=== PATIENT | male | born 1960 | race Caucasian/White ===

== ENCOUNTER 2024-02-04 22:39 | Emergency (ER) | payer MEDICAID, SELFPAY ==
[2024-02-04 22:43] VITALS: BP 128/56; PULSE 97; RESP 20; TEMP 36.8; O2SAT 99
[2024-02-04 22:49] VITALS: BP 128/56; PULSE 97; RESP 20; TEMP 36.8; O2SAT 99
--- NOTE | 2024-02-04 22:51 | W.ED.GENAD ---
Discharge Plan Disposition Patient Disposition: Home Condition: Good Discharge Details Clinical Impression: Dental infection Primary Care Provider: Lucas Fuentes ED Provider: Greg Calvo Home Meds and New Rx's Prescriptions: New amoxicillin-pot clavulanate 875-125 mg tablet 1 tab PO BID 10 Days Qty: 20 0RF No Action chlorhexidine gluconate 0.12 % mouthwash 15 ml mucous membrane BID Qty: 473 1RF Rx Instructions: Swish for 30 seconds after toothbrushing, then spit out; repeat twice daily (morning and evening) until symptoms resolve Discharge Instructions Instructions: Dental Abscess (ED) Additional Instructions: At this time you have a mild dental infection. It has not created a large abscess. Please take the antibiotic as directed. Please take Tylenol 1000 mg every 6-8 hours as needed for pain. Avoid Motrin at this time secondary to your renal function. Please follow-up closely with your primary care provider to have your kidney function rechecked in the next week. It is likely slightly elevated from your previous Motrin/ibuprofen use. Please follow-up closely with your oral surgeon. If you notice any worsening of your symptoms, or any new symptoms such as vomiting, diarrhea, fever, chills, shortness of breath, chest pain, numbness, weakness, or fainting , please return immediately to the emergency department for reevaluation. Please follow up with your primary care provider as soon as possible for reassessment and reevaluation. As always, it was a pleasure participating in your medical care today. Referrals: Reina Box NP [NURSE PRACTITIONER] - Lucas Fuentes MD [Primary Care Provider] - [facility] General Date/Time Provider Initiated Documentation: 02/04/24 22:41. [facility] Narrative: 63-year-old male with no significant past medical history presents today for evaluation of chills and shaking. Patient states that for the last month he has had left upper dental pain. He initially saw a dentist outpatient but they do not extract teeth in the upper mandible/molar area. He has been waiting for referral for an oral surgeon. He states that during that time he has continued to have mild and worsening left upper tooth pain. He states that tonight he developed sudden chills and shaking that has been causing worsening of his symptoms. He did take ibuprofen but last time was 2 days ago. He denies any vomiting or diarrhea. No difficulty swallowing or drinking. He is using a Chlorhexidine wash, but has not been on any oral antibiotics. He has no other complaints at this time. No other modifying factors. Related Data Home Medications Medication Instructions Recorded Confirmed chlorhexidine gluconate 0.12 % 15 ml mucous membrane BID #473 mL 12/31/23 02/04/24 mouthwash amoxicillin 875 mg-potassium 1 tab PO BID 10 days #20 tabs 02/05/24 clavulanate 125 mg tablet Previous Rx's Medication Instructions Recorded chlorhexidine gluconate 0.12 % 15 ml mucous membrane BID #473 mL 12/31/23 mouthwash amoxicillin 875 mg-potassium 1 tab PO BID 10 days #20 tabs 02/05/24 clavulanate 125 mg tablet Allergies Allergy/AdvReac Type Severity Reaction Status Date / Time No Known Allergies Allergy Verified 02/04/24 22:48 General Stated Complaint: DentalOral ARLENE: 3 Review of Systems All systems reviewed & are unremarkable except as noted in HPI and below Exam Narrative Exam Narrative: 1.Const: Well-nourished, Well-developed, appearing stated age 2.Eyes: PERRL, no conjunctival injection, and symmetrical lids. 3.ENT: Atraumatic external nose and ears. Moist MM. Neck: Symmetric, trachea midline, No thyromegaly. No evidence of significant swelling or Ludewig's angina. Minimal swelling over the periapical space in the left upper posterior molar. Filling is noted, no severe tooth decay noted otherwise. Ears demonstrate cerumen bilaterally. No mastoid tenderness. No signs of airway compromise. 4.CVS: +S1/S2, No murmurs or gallops. Peripheral pulses 2+ and equal in all extremities. Brisk capillary refill in all extremities. 5.RESP: Unlabored respiratory effort. Clear to auscultation bilaterally. No wheezes rales or rhonchi 6.GI: Soft, Nontender/Nondistended, No hepatosplenomegaly. No guarding or rebound. 7.MSK: Normocephalic/Atraumatic, Extremities w/o deformity or ttp No cyanosis or clubbing, Normal movement of all extremities 8.Skin: Warm, Dry. No rashes or lesions. 9.Neuro: gore stitcher II-XII grossly intact. Sensation grossly intact, no focal neurologic deficits. 10.Psych: (AAO) x3. Appropriate mood and affect Course Vital Signs Vital signs: Vital Signs Temperature 36.8 C 02/04/24 22:43 Pulse 97 H 02/04/24 22:43 Respiratory Rate 20 02/04/24 22:43 Blood Pressure 128/56 L 02/04/24 22:43 Pulse Oximetry 99 02/04/24 22:43 Temperature 36.8 C 02/04/24 22:43 Pulse 97 H 02/04/24 22:43 Respiratory Rate 20 02/04/24 22:43 Blood Pressure 128/56 L 02/04/24 22:43 Blood Pressure Position Supine 02/04/24 22:43 Pulse Oximetry 99 02/04/24 22:43 Oxygen Delivery Method Room Air 02/04/24 22:43 Oxygen Flow Rate 0 02/04/24 22:43 Pain Level 3 02/04/24 22:43 Medical Decision Making 63-year-old male with no significant past medical history presents today for evaluation of chills and shaking. Patient states that for the last month he has had left upper dental pain. He initially saw a dentist outpatient but they do not extract teeth in the upper mandible/molar area. He has been waiting for referral for an oral surgeon. He states that during that time he has continued to have mild and worsening left upper tooth pain. He states that tonight he developed sudden chills and shaking that has been causing worsening of his symptoms. He did take ibuprofen but last time was 2 days ago. He denies any vomiting or diarrhea. No difficulty swallowing or drinking. He is using a Chlorhexidine wash, but has not been on any oral antibiotics. He has no other complaints at this time. No other modifying factors. Exam demonstrates well-appearing male, skin feels slightly warm to the touch, however oral and temporal temperatures are normal. Small area of swelling in the posterior left upper molar over the feeling. No large abscess. No signs of airway compromise. Due to the patient's age, risk factors and systemic symptoms of chills and subjective fever at home, we will evaluate for systemic infection. We will give systemic antibiotics through the IV to start with Ancef, will gently rehydrate, give Toradol, treat with dental block, monitor closely and reassess. 1:11 AM After dental block patient's pain notably improved. Return to see if there was any pus for extraction at the periapical space, but I&D with 18-gauge needle revealed no purulent discharge. Laboratory workup shows no white count or bandemia. Minimal left shift. Lactate initially was elevated at 2.2, repeat after fluids and antibiotics is down to 0.8. Electrolytes normal. Creatinine is elevated at 1.7, no priors for comparison. I did discuss this with the patient, and he states that he had been taking quite a bit of Motrin over the last few days so I suspect this might be a component for the bump in his creatinine. Transaminases are otherwise normal. ESR and CRP are both normal. No active evidence of systemic infection otherwise. Blood cultures have already been drawn and sent. With the notable improvement of his symptoms I do feel that the patient is appropriate for discharge. Recommend close follow-up with PCP for reassessment in the next week of his renal function. We did give the patient a dental sheet for oral surgeon contacts. He will continue to search for one that will take his insurance. We will start the patient on Augmentin twice daily for treatment of the infection. Discussed red flags for which to return. I have extensively reviewed the treatment plan and discharge instructions with the patient and their family. I have addressed all patient concerns at this time. The patient and family was made aware of what symptoms to monitor for that would warrant a return to the emergency department. Discussed the plan with the patient and family, they demonstrate verbal understanding and agreement with our assessment and plan at this time. The documentation in this chart was dictated using [employer] dictation software. Please excuse any dictation errors. Quality:SDOH Health Related Social Needs: No Data to Display PFSH All Active Problems (Updated 02/05/24 @ 00:42 by Greg Calvo DO) Dental infection (Acute) Poison glenys (Acute) Preventative health care (Acute) Pain, dental (Acute) Anterior neck pain (Acute) Neck pain (Acute) Foot lesion (Acute) Family History Mother Depression Father Cancer Sister No problems noted. Brother No problems noted. Grandmother No problems noted. Social History Smoking/Tobacco Use Status: Never Second Hand Exposure: No Smoking risk assessment performed?: Yes Alcohol Intake: never Drug use: Never Substance use type: does not use Counseling given: No Counseling provided: none Caregiver/Support person: No Household members: spouse Housing: house Communication Needs: None Do you need help understanding health information?: Never Pets and animals: No Sexually active: Yes Do you think of yourself as: straight/heterosexual Current gender identity: male What is your relationship status?: How often do you talk on the phone with friends or family?: once per week How often do you get together with friends or relatives?: once per week How often do you attend congregation or yazidi services?: decline to answer Do you belong to any clubs or organized social groups?: no Panel score (0-1 are the most socially isolated patients): 1 What type of physical activity do you participate in: other Details: Stretching Duration: 15-30 minutes/day Frequency: 3-4 times per week Molly/Oriental Orthodox: Buddhist Special molly needs: No Seatbelt use: never Helmet use: No Drive intox or ride w/intox diesel pile driver operator: No Do you feel safe at home: Yes Do you feel safe in your relationship?: Yes
[2024-02-04 23:12] LABS: ESR 1 mm/hr (0-20)
[2024-02-04 23:16] LABS: Abs Immature Grans 0.03 10^3/uL (0.0-0.06); Absolute Basophil Count 0.02 10^3/uL (0.0-0.2); Absolute Eosinophil Count 0.03 10^3/uL (0.0-0.7); Absolute Lymphocyte Count 0.86 10^3/uL (1.2-3.4); Absolute Monocyte Count 0.15 10^3/uL (0.1-0.8); Absolute Neutrophil Count 7.89 10^3/uL (1.2-6.7); Basophils % 0.2; Eosinophils % 0.3; HCT 41.6 % (40.0-50.0); HGB 14.3 g/dL (13.5-17.5); Immature Grans % 0.3; Lactate 2.2 mmol/L (0.6-1.4); Lymphocytes % 9.6; MCH 30.2 pg (27.0-33.0); MCHC 34.4 % (32.0-36.0); MCV 88 fL (80-95); Monocytes % 1.7; Neutrophils % 87.9; Platelet Count 175 10^3/uL (130-400); RBC 4.74 10^6/uL (4.36-5.78); RDW 11.7 % (11.8-14.1); RDW-SD 37.6 fL; WBC 8.98 10^3/uL (4.4-10.8)
[2024-02-04] MEDS: AMPICILLIN/SULBACTAM 3 GM in Normal Saline 100 ML IVPB (23:24)
[2024-02-04] MEDS: Ketorolac 15 MG/ML VIAL IVP (23:24)
[2024-02-04] MEDS: Normal Saline 500 ML IV (23:24)
[2024-02-04 23:30] LABS: ALT 22 U/L (16-63); AST 17 U/L (15-37); Albumin 3.7 g/dL (3.4-5.0); Alkaline Phosphatase 77 U/L (46-116); Anion Gap 10.2 mmol/L (3-11); BUN 23 mg/dL (7-18); Bilirubin, Total 0.7 mg/dL (0.2-1.0); C-Reactive Protein < 0.50 mg/dL (<or=0.5); CO2 28.8 mmol/L (21.0-32.0); CREATININE 1.7 mg/dL (0.70-1.30); Calcium 8.7 mg/dL (8.5-10.1); Chloride 102 mmol/L (98-107); Glucose 116 mg/dL (74-106); Potassium 3.6 mmol/L (3.5-5.1); Sodium 141 mmol/L (136-145); Total Protein 6.9 g/dL (6.4-8.2)
[2024-02-04] MEDS: Bupivacaine 0.5% Pres-Free 30 ML VIAL (23:42)
[2024-02-05 00:52] LABS: Lactate 0.8 mmol/L (0.6-1.4)
[2024-02-05 01:27] VITALS: BP 107/60; PULSE 86; RESP 18; TEMP 36.9; O2SAT 99
--- NOTE | 2024-02-07 07:47 | ED.PROG_ITS ---
Date of service: 02/07/24 Time of Service: 07:48 Medical Decision Making Notified of positive culture result. Patient discharged on Augmentin. Lab work reviewed and emergency department visit reviewed. Had dental infection without abscess. Discharged on Augmentin. I attempted to contact the patient, but th ere was no answer on his phone. Quality:SDOH Health Related Social Needs: No Data to Display Discharge Plan Disposition Patient Disposition: Home Condition: Good Discharge Details Clinical Impression: Dental infection Primary Care Provider: Lucas Fuentes ED Provider: Greg Calvo Home Meds and New Rx's Prescriptions: New amoxicillin-pot clavulanate 875-125 mg tablet 1 tab PO BID 10 Days Qty: 20 0RF No Action chlorhexidine gluconate 0.12 % mouthwash 15 ml mucous membrane BID Qty: 473 1RF Rx Instructions: Swish for 30 seconds after toothbrushing, then spit out; repeat twice daily (morning and evening) until symptoms resolve Discharge Instructions Instructions: Dental Abscess (ED) Additional Instructions: At this time you have a mild dental infection. It has not created a large abscess. Please take the antibiotic as directed. Please take Tylenol 1000 mg every 6-8 hours as needed for pain. Avoid Motrin at this time secondary to your renal function. Please follow-up closely with your primary care provider to have your kidney function rechecked in the next week. It is likely slightly elevated from your previous Motrin/ibuprofen use. Please follow-up closely with your oral surgeon. If you notice any worsening of your symptoms, or any new symptoms such as vomiting, diarrhea, fever, chills, shortness of breath, chest pain, numbness, weakness, or fainting , please return immediately to the emergency department for reevaluation. Please follow up with your primary care provider as soon as possible for reassessment and reevaluation. As always, it was a pleasure participating in your medical care today. Referrals: Reina Box NP [NURSE PRACTITIONER] - Lucas Fuentes MD [Primary Care Provider] - Discharge Data Discharge Date/Time-TO BE ENTERED AT DEPARTURE: 02/05/24 02:09
--- NOTE | 2024-02-08 07:20 | W.ED.FU ---
Date of service: 02/08/24 Time of Service: 07:28 Follow Up Plan: I called the patient's phone number and left a message because he did not answer, instructed him to call the ER to discuss blood culture findings.
--- NOTE | 2024-02-08 10:06 | W.ED.FU ---
Date of service: 02/08/24 Time of Service: 10:06 Follow Up Plan: Patient called back, discussed the results of the blood culture being positive, he says he feels 100% better and has absolutely no symptoms. Denies any fevers or chills, suspect that this is positive blood culture is a skin contaminant, did recommend coming back to have repeat blood cultures but she is feeling better he declines, I feel this is reasonable given his resolution of symptoms. He was advised to follow-up with his primary care provider as needed return precautions given
== END 2024-02-05 02:09 | disposition home or self-care (01) ==
PROVIDERS: Emergency Provider Student in an Organized Health Care Education/Training Program; PCP Family Medicine
DX: K08.89 Other specified disorders of teeth and supporting structures (principal); K04.7 Periapical abscess without sinus
CPT/HCPCS: 00123; 64400; 80053; 85652; 87040; 96365; 96375; 99283; 83605; 85025; 86140; J0295; J0665; J1885

== ENCOUNTER 2025-04-20 18:08 | Emergency (ER) | payer MEDICAID, SELFPAY ==
[2025-04-20 18:25] VITALS: BP 117/61; PULSE 79; RESP 20; TEMP 38.3; O2SAT 98
--- NOTE | 2025-04-20 18:30 | DI.RAD_ITS ---
Exam(s) XR CHEST 2V PA LATERAL EXAM: XR CHEST 2V PA LATERAL CLINICAL HISTORY: fever TECHNIQUE: 2D digital imaging was performed of the chest. Three images were obtained. PA and lateral views were obtained. COMPARISON: No exams were available for comparison FINDINGS: MEDIASTINUM: Normal. HEART: Normal. PULMONARY VASCULATURE: Normal. There is a left-sided aortic arch which is a normal variant. LUNGS: Clear. PLEURAL SPACE: No pleural effusion or pneumothorax. BONE:Within normal limits for the patient's age. OTHER FINDINGS:Normal. IMPRESSION: 1. No acute pulmonary findings. 2. The preliminary [facility] report was reviewed. DATA REPOSITORY: RADIATION DOSE DELIVERED:
[2025-04-20 19:01] LABS: Lactate 1.6 mmol/L (<or=2.0)
[2025-04-20 19:03] LABS: Abs Immature Grans 0.05 10^3/uL (0.0-0.06); Absolute Basophil Count 0.03 10^3/uL (0.0-0.2); Absolute Lymphocyte Count 1.16 10^3/uL (1.2-3.4); Absolute Monocyte Count 0.79 10^3/uL (0.1-0.8); Absolute Neutrophil Count 6.69 10^3/uL (1.2-6.7); Basophils % 0.3 %; HGB 14.3 g/dL (13.5-17.5); Immature Grans % 0.6 %; Lymphocytes % 13.3 %; MCH 30.1 pg (27.0-33.0); MCV 88 fL (80-95); MPV 9.6 fL (8.0-11.0); Monocytes % 9.1 %; Neutrophils % 76.7 %; Platelet Count 204 10^3/uL (130-400); RBC 4.75 10^6/uL (4.36-5.78); RDW 11.7 % (11.8-14.1); RDW-SD 37.6 fL; WBC 8.72 10^3/uL (4.4-10.8)
[2025-04-20 19:05] LABS: ESR 6 mm/hr (0-20)
[2025-04-20 19:11] VITALS: BP 117/61; PULSE 79; RESP 20; TEMP 38.3; O2SAT 98
[2025-04-20 19:16] LABS: Magnesium 2.3 mg/dL (1.8-2.4)
[2025-04-20 19:18] LABS: COVID-19 PCR Negative (Negative); Influenza A PCR Negative (Negative); Influenza B PCR Negative (Negative); RSV PCR Negative (Negative)
[2025-04-20] MEDS: Normal Saline 1,000 ML 1000 ML IV ×2 (19:18→20:45)
[2025-04-20] MEDS: Acetaminophen 500 MG TAB 1000 MG PO (19:18)
[2025-04-20 19:19] LABS: Source Nasopharynx
[2025-04-20 19:22] LABS: ALT 62 U/L (16-63); AST 40 U/L (15-37); Albumin 4.1 g/dL (3.4-5.0); Alkaline Phosphatase 125 U/L (46-116); Anion Gap 8.6 mmol/L (3-11); BUN 14 mg/dL (7-18); Bilirubin, Total 1.4 mg/dL (0.2-1.0); CO2 29.4 mmol/L (21.0-32.0); CREATININE 1.6 mg/dL (0.70-1.30); Calcium 8.8 mg/dL (8.5-10.1); Chloride 97 mmol/L (98-107); Creatine Kinase 272 U/L (39-308); Estimated GFR 48.41 (mL/min/1.73m2); Glucose 102 mg/dL (74-106); Potassium 4.5 mmol/L (3.5-5.1); Sodium 135 mmol/L (136-145); Total Protein 8.1 g/dL (6.4-8.2)
[2025-04-20 19:23] LABS: Bilirubin Negative (Negative); Blood Small (Negative); Clarity Clear (Clear); Glucose Negative (Negative); Ketones Negative (Negative); Leukocyte Esterase Negative (Negative); Nitrite Negative (Negative); Urobilinogen 0.2 mg/dL (Up to 0.2)
[2025-04-20 19:32] LABS: Bacteria Negative HPF (Negative); C & S Indicated? No; Crystals Negative HPF (Negative); Epithelial Cells Negative HPF (Negative); Mucus Negative (Negative); RBC 0-2 HPF (0-2); WBC Negative HPF (0-5)
[2025-04-20 20:20] VITALS: BP 102/57; PULSE 80; RESP 18; TEMP 38.6; O2SAT 97
--- NOTE | 2025-04-20 20:59 | DI.[facility]_ITS ---
PROCEDURE INFORMATION: Exam: XR Chest Exam date and time: 04/20/2025 7:34 PM Age: 64 years old Clinical indication: Fever TECHNIQUE: Imaging protocol: Radiologic exam of the chest. Views: 2 views. COMPARISON: No relevant prior studies available. FINDINGS: Lungs: Unremarkable. No consolidation. Pleural spaces: Unremarkable. No pleural effusion. No pneumothorax. Heart/Mediastinum: Unremarkable. No cardiomegaly. Bones/joints: Unremarkable. IMPRESSION: No acute findings. Dictated and Authenticated by: Luis Lee MD. Orderin Gregg Stevenson MD
[2025-04-20 21:14] VITALS: TEMP 37.5
--- NOTE | 2025-04-20 22:32 | W.ED.GENAD ---
Discharge Plan Disposition Patient Disposition: Home Discharge Details Clinical Impression: Fever, Heat effects Primary Care Provider: Lucas Fuentes ED Provider: Anaya Escobedo Discharge Instructions Instructions: Fever of Unknown Origin (DC) Additional Instructions: Your blood work is very reassuring. At this time there are no signs of an obvious infection requiring antibiotics. tick and Lyme disease panel has been sent off but because you are very diligent about your Tick checks,we will not start antibiotics unless this results is positive. Your symptoms are most likely related to being out in the heat. You have been given IV fluids. Please continue aggressive oral hydration at home especially with electrolyte containing fluid like Pedialyte or Gatorade. Return to the emergency department with any persistent symptoms or other concerns. Follow-up with PCP. HPI General Date/Time Provider Initiated Documentation: 04/20/25 18:13. Limitations to Documentation: no limitations. Information obtained by: patient. HPI Narrative: 64-year-old gentleman without significant past medical history presents for evaluation of fever. He reports that he has been working outside in the garden and on peoples homes. his symptoms included body aches, muscle soreness and fever. He reports a rash on his chest. states that he does extensive and regular tick checks. denies cough, sore throat, abd pain, vomiting. Related Data Allergies Allergy/AdvReac Type Severity Reaction Status Date / Time No Known Allergies Allergy Verified 04/20/25 18:24 General Stated Complaint: Fever ARLENE: 3 Exam Narrative Exam Narrative: Review of Systems: All systems reviewed & are unremarkable except as noted in HPI and below Well-developed, no acute distress febrile NCAT PERRL, normal conjunctiva b/l TM unremarkable no oral lesion, OP without tonsillar enlargement or exudate no cervical adenopathy RRR, no murmur Unlabored respiratory effort, CTAB Nondistended abdomen, soft non tender folliculitis on chest wall no focal neurologic deficits Appropriate mood and affect Course Vital Signs Vital signs: Vital Signs Temperature 38.3 C H 04/20/25 18:25 Pulse 79 04/20/25 18:25 Respiratory Rate 20 04/20/25 18:25 Blood Pressure 117/61 04/20/25 18:25 Pulse Oximetry 98 04/20/25 18:25 Temperature 37.5 C 04/20/25 21:14 Temperature Source Tympanic 04/20/25 21:14 Pulse 80 04/20/25 20:20 Respiratory Rate 18 04/20/25 20:20 Blood Pressure 102/57 L 04/20/25 20:20 Blood Pressure Mean 72 04/20/25 20:20 Blood Pressure Position Sitting 04/20/25 19:11 Pulse Oximetry 97 04/20/25 20:20 Oxygen Delivery Method Room Air 04/20/25 20:20 Oxygen Flow Rate 0 04/20/25 20:20 Pain Level 4 04/20/25 19:11 Lab/Test Results Lab/Test Results: Laboratory Tests Range/Units 04/20/25 04/20/25 04/20/25 18:34 18:54 19:05 WBC (4.4-10.8) 10^3/uL 8.72 RBC (4.36-5.78) 10^6/uL 4.75 Hgb (13.5-17.5) g/dL 14.3 Hct (40.0-50.0) % 42.0 MCV (80-95) fL 88 MCH (27.0-33.0) pg 30.1 MCHC (32.0-36.0) % 34.0 RDW (11.8-14.1) % 11.7 L Plt Count (130-400) 10^3/uL 204 MPV (8.0-11.0) fL 9.6 Immature Gran % % 0.6 Neutrophils % % 76.7 Lymphocytes % % 13.3 Monocytes % % 9.1 Eosinophils % % 0.0 Basophils % % 0.3 Nucleated RBC % (0.0-0.3) % 0.0 Absolute Neutrophils (1.2-6.7) 10^3/uL 6.69 Absolute Lymphocytes (1.2-3.4) 10^3/uL 1.16 L Absolute Monocytes (0.1-0.8) 10^3/uL 0.79 Absolute Eosinophils (0.0-0.7) 10^3/uL 0.00 Absolute Basophils (0.0-0.2) 10^3/uL 0.03 ESR (0-20) mm/hr 6 VBG Lactate (<or=2.0) mmol/L 1.6 Sodium (136-145) mmol/L 135 L Potassium (3.5-5.1) mmol/L 4.5 Chloride (98-107) mmol/L 97 L Carbon Dioxide (21.0-32.0) mmol/L 29.4 Anion Gap (3-11) mmol/L 8.6 BUN (7-18) mg/dL 14 Creatinine (0.70-1.30) mg/dL 1.6 H Est GFR (CKD-EPI 2020) (mL/min/1.73m2) 48.41 Glucose (74-106) mg/dL 102 Calcium (8.5-10.1) mg/dL 8.8 Magnesium (1.8-2.4) mg/dL 2.3 Total Bilirubin (0.2-1.0) mg/dL 1.4 H AST (15-37) U/L 40 H ALT (16-63) U/L 62 Alkaline Phosphatase (46-116) U/L 125 H Creatine Kinase (39-308) U/L 272 C-Reactive Protein (<or=0.5) mg/dL 9.90 H Total Protein (6.4-8.2) g/dL 8.1 Albumin (3.4-5.0) g/dL 4.1 Urine Color (Yellow) Yellow Urine Clarity (Clear) Clear Urine pH (5-8) 6.0 Ur Specific [place] (1.005-1.025) 1.010 Urine Protein (Neg-Trace) mg/dL 100 H Urine Ketones (Negative) mg/dL Negative Urine Blood (Negative) Small H Urine Nitrite (Negative) Negative Urine Bilirubin (Negative) Negative Urine Urobilinogen (Up to 0.2) mg/dL 0.2 Ur Leukocyte Esterase (Negative) Negative Urine RBC (0-2) HPF 0-2 Urine WBC (0-5) HPF Negative Ur Epithelial Cells (Negative) HPF Negative Urine Crystals (Negative) HPF Negative Urine Bacteria (Negative) HPF Negative Urine Mucus (Negative) Negative Ur Culture Indicated? No Urine Glucose (Negative) mg/dL Negative COVID-19 Source Nasopharynx SARS-CoV-2 (PCR) (Negative) Negative Influenza Type A (PCR) (Negative) Negative Influenza Type B (PCR) (Negative) Negative RSV (PCR) (Negative) Negative Medical Decision Making Emergent evaluation of acute febrile illness. Patient is otherwise healthy and has no risk factors for overwhelming infection. No known sick contacts. he has had significant heat exposure for the last few days. He reports that he has been drinking a fair amount of water and is not sure if she is dehydrated. He does not have clear conditioning in his home. On examination he is noted to be febrile but he is not tachycardic or hypotensive. Initial differential includes related illness, dehydration, electrolyte derangement, rhabdomyolysis. Patient evaluated for infectious etiology that may be causing his elevated temperature. There is no leukocytosis or anemia. His lactic acid is not elevated. No electrolytes do not show significant derangement. CRP is slightly elevated but ESR is not. I do not have a specific etiology of the CRP elevation. Urinalysis does not demonstrate signs of infection. Viral testing negative. Chest x-ray obtained and There is no consolidative process. After Tylenol and IV fluid resuscitation, patient's fever did break and he started to feel better. He was feeling much better and started eating. tick panel has been sent, but the patient is fairly diligent about his, so I do not feel that we need to start empiric antibiotics to cover for this as The source of his fever. Recommend continued oral hydration at home. Limit heat exposure and follow-up closely with PCP. Return precautions advised [facility] All Active Problems (Updated 04/20/25 @ 21:26 by Anaya Escobedo MD) Heat effects (Acute) Fever (Acute) Poison glenys (Acute) Preventative health care (Acute) Pain, dental (Acute) Anterior neck pain (Acute) Neck pain (Acute) Foot lesion (Acute) Family History Mother Depression Father Cancer Sister No problems noted. Brother No problems noted. Grandmother No problems noted. Social History Smoking/Tobacco Use Status: Never Second Hand Exposure: No Smoking risk assessment performed?: Yes Alcohol Intake: never Drug use: Never Substance use type: does not use Counseling given: No Counseling provided: none Caregiver/Support person: No Household members: spouse Housing: house Communication Needs: None Do you need help understanding health information?: Never Pets and animals: No Sexually active: Yes Do you think of yourself as: straight/heterosexual Current gender identity: male What is your relationship status?: How often do you talk on the phone with friends or family?: once per week How often do you get together with friends or relatives?: once per week How often do you attend buddhist or cheondoism services?: decline to answer Do you belong to any clubs or organized social groups?: no Panel score (0-1 are the most socially isolated patients): 1 What type of physical activity do you participate in: other Details: Stretching Duration: 15-30 minutes/day Frequency: 3-4 times per week Molly/Jewish: Baptism Special molly needs: No Seatbelt use: never Helmet use: No Drive intox or ride w/intox courier delivery driver: No Do you feel safe at home: Yes Do you feel safe in your relationship?: Yes
[2025-04-22 10:33] LABS: Lyme Ab w Rflx to Lyme Confirm Negative (Negative)
[2025-04-23 23:19] LABS: B. miyamotoi PCR Negative (Negative); Babesia divergens/MO-1 Negative (Negative); Babesia duncani Negative (Negative); Babesia microti Negative (Negative); Ehrlichia chaffeensis Negative (Negative); Ehrlichia ewingii/canis Negative (Negative); Ehrlichia muris eauclairensis Negative (Negative)
[2025-04-24 03:33] LABS: Anaplasma phagocytophilum Positive (Negative)
--- NOTE | 2025-04-24 05:20 | ED.FU.B_ITS ---
Follow Up Plan: The patient was positive for Anaplasma on a tickborne panel that was obtained on 04-20-25. I called in a 10-day supply of oral doxycycline for the patient to [facility] at his preferred pharmacy here locally. I will contact the patient by phone to inform her of the diagnosis and the need for antibiotic therapy.
--- NOTE | 2025-04-25 15:17 | ED.FU.B_ITS ---
Follow Up Plan: Tick panel from 04/20/2025 reviewed: Positive anaplasmosis. Patient had normal platelets with mild elevation of AST on date of service 04/20/2025. Attempts were made to contact the patient and voicemail was left. Previous provider called in prescription for doxycycline to [facility] in [facility]. I left another voicemail today and patient returned call. I reviewed results with the patient. Patient notes he has been feeling much better over the past couple days with near complete resolution of symptoms. He still notes some weakness. Explained that patient should fill prescription for doxycycline and complete full course as prescribed. He was encouraged to follow-up with his primary care physician for reassessment. I did call patient's primary care office earlier today and alerted them to positive result.
== END 2025-04-20 21:34 | disposition home or self-care (01) ==
PROVIDERS: Emergency Provider Emergency Medicine; PCP Family Medicine
DX: R50.9 Fever, unspecified (principal); R51.9 Headache, unspecified; R00.2 Palpitations
CPT/HCPCS: 80053; 82550; 85652; 87637; 87798; 99284; 71046; 81003; 81015; 83605; 83735; 85025; 86140; 86618

== ENCOUNTER 2025-08-01 11:01 | Outpatient (REF) | payer MEDICAID, SELFPAY ==
[2025-08-01 17:26] LABS: Glucose Negative (Negative)
== END 2025-08-01 11:02 | disposition home or self-care (01) ==
LOC: LBN 11:01
PROVIDERS: PCP Family Medicine; Visit Provider Nurse Practitioner Family
DX: R10.30 Lower abdominal pain, unspecified (principal)
CPT/HCPCS: 81003

== ENCOUNTER 2025-08-17 01:15 | Outpatient (CLI) | payer MEDICAID, SELFPAY ==
--- NOTE | 2025-08-17 06:45 | DI.US_ITS ---
Exam(s) US SOFT TISS EXTREMITY/GROIN EXAM: US SOFT TISS EXTREMITY/GROIN CLINICAL HISTORY: Bilateral groin pain,RLQ AND LLQ PAIN,R10.31,R10.32. TECHNIQUE: Ultrasound was performed using standard protocol. COMPARISON: No exams were available for comparison FINDINGS: Sonographic assessment utilizing grayscale and color Doppler imaging was performed and targeted to the area of clinical concern. There is a 1.9 x 0.8 x 1.6 cm cystic lesion in the right inguinal region. There is no abnormal blood flow is seen. No solid nodule or thickened mckeon are seen. No other cystic or solid masses are present. IMPRESSION: Nonspecific well-circumscribed 1.9 cm cystic lesion in the right inguinal region. This is nonspecific. Resolving hematoma, seroma necrotic lymph node should all be considered. If further imaging is warranted, a CT scan or MRI may be obtained. Alternatively a follow-up ultrasound may be obtained to document resolution. DATA REPOSITORY:
--- NOTE | 2025-08-17 06:45 | DI.US_ITS ---
Exam(s) US SCROTUM EXAM: US SCROTUM CLINICAL HISTORY: scrotal and testicular pain,N50.82,R10.31,R10.32. TECHNIQUE: Scrotal ultrasound performed using grayscale, color-flow and spectral Doppler analysis. COMPARISON: No exams were available for comparison FINDINGS: Right testicle: 2.7 x 1.4 x 1.8 cm Echogenicity: Normal. There is slight decreased blood flow to the right testicle compared to the left. Contour: Smooth. Mass: None seen. Microlithiasis: None. Hydrocele: None. Variocele: None. Hernia: No peristalsing bowel loop identified. Epididymis: There is a 0.5 cm epididymal head cyst. Left testicle: 4.0 x 1.9 x 2.5 cm Echogenicity: Normal. Contour: Smooth. Mass: None seen. Microlithiasis: None. Hydrocele: None. Variocele: None. Hernia: No peristalsing bowel loop identified. Epididymis: Normal. DOPPLER: Color: Symmetric and uniform, no hyperemia. IMPRESSION: 1. Slight decrease in size and vascularity of the right testicle. No testicular mass or findings to suggest orchitis are seen. 2. Normal appearance of the left testicle. DATA REPOSITORY:
== END 2025-08-17 01:35 ==
LOC: DI 01:15
PROVIDERS: PCP Family Medicine; Visit Provider Nurse Practitioner Family
DX: R10.31 Right lower quadrant pain (principal); R10.32 Left lower quadrant pain; N50.82 Scrotal pain
CPT/HCPCS: 76882; 76870